=== PATIENT | female | born 1985 | race American Indian/Alaskan Native ===

== ENCOUNTER 2019-08-27 01:54 | Inpatient (IN) | payer BC ==
[2019-08-27] MEDS: Lactated Ringers 1,000 ML IV SCH ×2 (02:25→03:40)
--- NOTE | 2019-08-27 04:26 | PCM.SN ---
- Free Text/Narrative Note: ANESTHESIA OB SERVICE Date: 08/27/2019 Time: 0231 to 0348 Preprocedure: 39 wks OB in labor Postprocedure: 39 wks OB in labor Procedure: Labor Epidural Placement for Pain Control I was called by the OB RN for placement of a Labor Epidural per the patient request. She has had a previous Labor Epidural without complications. I discussed with her and her about the risks and benefits of an epidural including PDPH, chronic low back pain and an incomplete epidural analgesia or failure. She wishes to proceed after all questions were answered. A consent was signed. Sedation: None Monitors: NIBP, heart rate and SpO2. Please see nursing notes for vital signs including FHR. She was placed in a sitting position and I prepped her lumbar area with Betadine which was allowed to dry. Under aseptic technique, I first placed a clear, sterile drape and then infiltrated the L3-4 interspace with 5 ml's of 1% Lidocaine plain using a 25 Ga. needle. After a contraction, I then inserted and advanced a 17 Ga. X 3.5 In. Tuohy needle until I had a positive STEFANI at 6 cm to the skin. I dilated the space with sterile .9% normal saline 4 ml's easily and then gave her a test dose of 4 ml's of 1.5% Lidocaine with Epinephrine 1/200 ,000. Her heart did not change and the FHR remained 130's. I then passed a 19 Ga. Closed Tip Epidural Catheter easily without complaints or complications to a depth of 12 cm's to the skin. I placed a sterile dressing and taped the catheter in place. She tolerated this well. She was laid down with her head elevated approximately 25 degrees. I then slowly bolused the catheter with a total of 13 ml's of .2% Naropin in divided doses with multiple negative aspirations fo blood/CSF. After about 5-10 minutes her pain went from a 10/10 to 3/10 still moving her legs easily. I the placed her on a PCEA pump with .2% Naropin at a continuous rate of 10 ml/hour, bolus dose of 5 ml's with a 15 minute lockout. I did instruct her on how to use the demand control. She continues to do well. She is completely dilated. The physician did ask me to decrease the continuous rate which I did to 5 ml's/ hr. Her pain is at a 2-3/10. Mahesh Gates CRNA [facility]
[2019-08-27] MEDS ORDERED: Oxytocin 10 Units/1 ML SDV IM ONE (05:35)
[2019-08-27] MEDS ORDERED: Ibuprofen 600 MG Tab PO PRN (05:57)
--- NOTE | 2019-08-27 05:57 | PCM.DEL ---
L & D Note - General Info Date of Service: 08/27/19 - Delivery Note Labor: Spontaneous Delivery Outcome: Livebirth Infant Delivery Method: Spontaneous Vaginal Delivery-Single Presentation: Left Occiput Anterior ([place]) Nuchal Cord: None Prep: Povidone-Iodine (Betadine Anesthesia Type: Epidural Amniotic Fluid Description: No Fluid Seen Episiotomy Type: None Laceration: 1st Degree, Vaginal Placenta: Intact, Spontaneous Cord: 3 Vessels Resuscitation Needed: No : Suctioned, Bulb Syringe, Stimulated, Warmed, [place] Used, Warmer Used Post Delivery Events: Hemorrhage Second Stage Interventions: Reports: Second Nurse Assessed Progress of Descent, Second Nurse Reviewed Heart Tones, Laboring Down, Pushing Effectively, Pushing, Stirrups/Leg Supports (After delviery,hemorrhage noted.Oxytocin,and Cytotec given to control it) - General Info Date of Service: 08/27/19 Functional Status: Reports: Pain Controlled - Review of Systems General: Reports: No Symptoms HEENT: Reports: No Symptoms Pulmonary: Reports: No Symptoms Cardiovascular: Reports: No Symptoms Gastrointestinal: Reports: No Symptoms Genitourinary: Reports: No Symptoms Musculoskeletal: Reports: No Symptoms Skin: Reports: No Symptoms Neurological: Reports: No Symptoms Psychiatric: Reports: No Symptoms - Exam General: Alert, Oriented HEENT: Pupils Equal, Pupils Reactive, EOMI, Mucous Membr. Moist/[place] Neck: Supple Lungs: Clear to Auscultation, Normal Respiratory Effort Cardiovascular: Regular Rate, Regular Rhythm GI/Abdominal Exam: Normal Bowel Sounds, Soft, Non-Tender, No Organomegaly, No Distention, No Abnormal Bruit, No Mass, Pelvis Stable (Female) Exam: Normal External Exam, Normal Speculum Exam, Normal Bimanual Exam Back Exam: Normal Inspection, Full Range of Motion Extremities: Normal Inspection, Normal Range of Motion, Non-Tender, No Pedal Edema, Normal Capillary Refill Skin: Warm, Dry, Intact Wound/Incisions: Healing Well Neurological: No New Focal Deficit Psy/Mental Status: Alert, Normal Affect, Normal Mood - Problem List & Annotations (1) Delivery normal SNOMED Code(s): 72752448, 271097668 Code(s): O80 - ENCOUNTER FOR FULL-TERM UNCOMPLICATED DELIVERY Status: Acute (2) hemorrhage SNOMED Code(s): 55567226 Code(s): O72.1 - OTHER IMMEDIATE HEMORRHAGE Status: Acute - Problem List Review Problem List Initiated/Reviewed/Updated: Yes - My Orders Last 24 Hours: My Active Orders 08/27/19 02:10 Admission Status [Patient Status] [ADT] Routine - Plan Plan:: Routine care.CBC in Am
[2019-08-27] MEDS: Acetaminophen/HYDROcodone 325-5 MG Tab PO PRN ×3 (06:53→22:15)
[2019-08-27] MEDS ORDERED: Misoprostol 100 MCG Tab PO ONE (07:00)
[2019-08-27] MEDS ORDERED: Misoprostol 200 MCG Tab PO ONE (08:15)
[2019-08-27] MEDS ORDERED: Ropivacaine 0.2% 2MG/ML 200 ML Bag IV ONE (11:59)
--- NOTE | 2019-08-28 08:27 | PCM.PNPP ---
- General Info Date of Service: 08/28/19 Subjective Update: Bleeding has slowed down,titally stable. Pain is well controlled,mainly in the back Functional Status: Reports: Pain Controlled - Review of Systems General: Reports: No Symptoms HEENT: Reports: No Symptoms Pulmonary: Reports: No Symptoms Cardiovascular: Reports: No Symptoms Gastrointestinal: Reports: No Symptoms Genitourinary: Reports: No Symptoms Musculoskeletal: Reports: No Symptoms Skin: Reports: No Symptoms Neurological: Reports: No Symptoms Psychiatric: Reports: No Symptoms - General Info Date of Service: 08/28/19 - Patient Data Vital Signs - Most Recent: Last Vital Signs Temp 98 F 08/28/19 00:00 Pulse 74 08/28/19 00:00 Resp 18 08/28/19 00:00 BP 116/59 L 08/28/19 00:00 Pulse Ox 97 08/28/19 00:00 Weight - Most Recent: 95.254 kg Lab Results - Last 24 Hours: Laboratory Results - last 24 hr 08/28/19 Range/Units 06:20 WBC 10.1 (4.5-12.0) X10-3/uL RBC 3.33 (3.23-5.20) x10(6)uL Hgb 9.9 L (11.5-15.5) g/dL Hct 29.9 L (30.0-51.3) % MCV 89.8 (80-96) fL MCH 29.8 (27.7-33.6) pg MCHC 33.2 (32.2-35.4) g/dL RDW 13.5 (11.5-15.5) % Plt Count 171 (125-369) X10(3)uL MPV 9.6 (7.4-10.4) fL Add Manual Diff Yes Neutrophils % (Manual) 64 (46-82) % Band Neutrophils % 4 (0-6) % Lymphocytes % (Manual) 25 (13-37) % Monocytes % (Manual) 5 (4-12) % Eosinophils % (Manual) 2 (0-5) % Med Orders - Current: Current Medications Hydrocodone Bitart/Acetaminophen ([place] 325-5 Mg) 1 tab PO Q4H PRN PRN Reason: Pain (moderate 4-6) Last Admin: 08/27/19 22:15 Dose: 1 tab Ibuprofen (Motrin) 600 mg PO Q4H PRN PRN Reason: Pain Discontinued Medications Lactated Ringer's (Ringers, Lactated) 1,000 mls @ 999 mls/hr IV ASDIRECTED [facility] Last Admin: 08/27/19 03:40 Dose: 125 mls/hr Misoprostol (Cytotec) 400 mcg PO ONETIME ONE Stop: 08/27/19 08:16 Last Admin: 08/27/19 08:15 Dose: 400 mcg Oxytocin (Pitocin) 10 unit IM ONETIME ONE Stop: 08/27/19 05:36 Last Admin: 08/27/19 05:34 Dose: 10 unit - Interaction Disposition, : [place] in Room with Family Infant Feeding: Attempted ; Nursed Fair/Poor Support Person: - Recovery Exam Fundal Tone: Firm Fundal Level: 1 Fingerbreadths Above Umbilicus Fundal Placement: Midline Lochia Amount: Small, Moderate Lochia Color: Rubra/Red Perineum Description: Intact, Minimal Bruising/Swelling Bladder Status: Voiding Urinary Elimination: Voided - Exam General: Alert, Oriented HEENT: Pupils Equal Neck: Supple Lungs: Clear to Auscultation, Normal Respiratory Effort Cardiovascular: Regular Rate, Regular Rhythm GI/Abdominal Exam: Normal Bowel Sounds, Soft, Non-Tender, No Organomegaly, No Distention, No Abnormal Bruit, No Mass, Pelvis Stable Extremities: Normal Inspection, Normal Range of Motion, Non-Tender, No Pedal Edema, Normal Capillary Refill Skin: Warm, Dry, Intact Wound/Incisions: Healing Well Neurological: No New Focal Deficit Psy/Mental Status: Alert, Normal Affect, Normal Mood - Problem List & Annotations (1) Delivery normal SNOMED Code(s): 26957461, 528750827 Code(s): O80 - ENCOUNTER FOR FULL-TERM UNCOMPLICATED DELIVERY Status: Acute (2) hemorrhage SNOMED Code(s): 08421447 Code(s): O72.1 - OTHER IMMEDIATE HEMORRHAGE Status: Acute Qualifiers: hemorrhage type: unspecified Qualified Code(s): O72.1 - Other immediate hemorrhage (3) Delivery normal SNOMED Code(s): 50745846, 121774735 Code(s): O80 - ENCOUNTER FOR FULL-TERM UNCOMPLICATED DELIVERY Status: Acute (4) Anemia, blood loss SNOMED Code(s): 101297535 Code(s): D50.0 - IRON DEFICIENCY ANEMIA SECONDARY TO BLOOD LOSS (CHRONIC) Status: Acute - Problem List Review Problem List Initiated/Reviewed/Updated: Yes - Plan Plan:: vitamins.Wishes to go home. [facility]
== END 2019-08-28 12:00 | disposition home or self-care (01) | DRG 560 ==
LOC: FB.OBCHECK 01:54 → FB.OB 01:58 → FB.OBCHECK 02:14 → FB.OB 02:15 → EDBD 02:15 → MERGE 02:15
PROVIDERS: ADMIT Family Medicine; ATTEND Family Medicine
PROC: 10E0XZZ Delivery of Products of Conception, External Approach (ICD-10-PCS; principal; 2019-08-27)
PROC: 3E0R3BZ Introduction of Anesthetic Agent into Spinal Canal, Percutaneous Approach (ICD-10-PCS; 2019-08-27)
PROC: 00HU33Z Insertion of Infusion Device into Spinal Canal, Percutaneous Approach (ICD-10-PCS; 2019-08-27)
DX: O99.02 Anemia complicating childbirth (principal); O72.1 Other immediate postpartum hemorrhage; D64.9 Anemia, unspecified; Z3A.39 39 weeks gestation of pregnancy; Z37.0 Single live birth; O70.0 First degree perineal laceration during delivery
CPT/HCPCS: 36415; 51701; 59409; 85025; A9270-GY; J2001; J2590; J2795; J7120

== ENCOUNTER 2023-01-09 08:26 | Emergency (ER) | payer BC, MEDICAID ==
[2023-01-09] MEDS ORDERED: LORazepam 1 MG Tab PO ONE ×2 (09:17→09:21)
[2023-01-09] MEDS ORDERED: Acetaminophen 500 MG Tab PO ONE (09:17)
[2023-01-09] MEDS ORDERED: Ibuprofen 800 MG Tab PO ONE (09:17)
[2023-01-09 11:02] LABS: CORONAVIRUS COVID-19 NAA NEGATIVE (NEGATIVE)
== END 2023-01-09 10:25 | disposition home or self-care (01) ==
LOC: FB.ED 08:26
DX: J06.9 Acute upper respiratory infection, unspecified (principal); F41.9 Anxiety disorder, unspecified; Z20.822 Contact with and (suspected) exposure to COVID-19
CPT/HCPCS: 0240U; 99283; 99284; A9270-GY